=== PATIENT | female | born 1940 | race Caucasian/White ===

== ENCOUNTER → 2017-03-05 | Day surgery (SDC) | payer OTHER, MEDICAID ==
[~2017-03-05] MED LIST: 1-ME1LIQ PO; AMIT75TA6 PO; CHOL4POW4 PO; DIPH50TA PO; LACTATED RINGER'S 1000 ML INJ 1,000 ML ONE; MECL25CH PO; METO50TA PO; PRIL40CA PO; PROPOFOL 200 MG/20 ML AMP IV ONE; TRIF1TAB2 PO
--- NOTE | 2017-03-05 15:15 | GIPROC ---
[facility] [address] [facility], [address] COLONOSCOPY PROCEDURE REPORT EXAM DATE: 03/05/2017 PATIENT NAME: Sophy Lyon MR #: [id number] BIRTHDATE: 1940 ENDOSCOPIST: Dereck Bull MD ORDER #: [id number] [employer] PROFESSIONAL: Amy Pedraza RN STATUS: outpatient INDICATIONS: The patient is a 76 yr old female here for a colonoscopy due to unexplained diarrhea PROCEDURE PERFORMED: Colonoscopy with biopsy MEDICATIONS: None and Per Anesthesia. PREP QUALITY: good ESTIMATED BLOOD LOSS: None CONSENT: The patient understands the risks and benefits of the procedure and understands that these risks include, but are not limited to: sedation, allergic reaction, infection, perforation and/or bleeding. Alternative means of evaluation and treatment include, among others: physical exam, x-rays, and/or surgical intervention. The patient elects to proceed with this endoscopic procedure. medical equipment was checked for proper function. Hand hygiene and appropriate measures for infection prevention was taken. After the risks, benefits and alternatives of the procedure were thoroughly explained, Informed consent was verified, confirmed and timeout was successfully executed by the treatment team. A digital exam revealed no abnormalities of the rectum The EC-[id number] ([id number]) endoscope was introduced through the anus and advanced to the cecum, which was identified by both the appendix and ileocecal valve. The instrument was then slowly withdrawn as the colon was fully examined. COLON FINDINGS: Mild diverticulosis was noted in the sigmoid colon. The colon mucosa was otherwise normal. Multiple random biopsies of the area were performed. Retroflexed views revealed no abnormalities The scope was then completely withdrawn from the patient and the procedure terminated. PROCEDURE WITHDRAWAL TIME:6.9minutes ADVERSE EVENTS: There were no complications. IMPRESSIONS: 1. Mild diverticulosis was noted in the sigmoid colon 2. The colon mucosa was otherwise normal; multiple random biopsies of the area were performed 3. Retroflexed views revealed no abnormalities 4. Revealed no abnormalities of the rectum RECOMMENDATIONS: 1. Await biopsy results. Biopsy results will not be ready for 7-10 days. If you don't hear from us in two weeks, call our office for results. 2. High fiber diet 3. Yearly hemoccult 4. Follow-up: GI Clinic 4 week(s) RECALL: Colonoscopy Dereck Bull MD eSigned: Dereck Bull MD 03/05/2017 3:15 PM cc: Papo Hameed M.D and Rosalba Rashid
--- NOTE | 2017-03-05 15:19 | GIPROC ---
[facility] [address] [facility], [address] EGD PROCEDURE REPORT EXAM DATE: 03/05/2017 PATIENT NAME: Sophy Lyon MR #: [id number] BIRTHDATE: 1940 ATTENDING: Dereck Bull MD ORDER #: [id number] FINANCIAL LEGAL ASSISTANT: Amy Pedraza RN STATUS: outpatient INDICATIONS: The patient is a 76 yr old female here for an EGD due to dysphagia and unexplained diarrhea PROCEDURE PERFORMED: EGD w/ biopsy MEDICATIONS: None, Per Anesthesia, None, and Per Anesthesia. TOPICAL ANESTHETIC: CONSENT: The patient understands the risks and benefits of the procedure and understands that these risks include, but are not limited to: sedation, allergic reaction, infection, perforation and/or bleeding. Alternative means of evaluation and treatment include, among others: physical exam, x-rays, and/or surgical intervention. The patient elects to proceed with this endoscopic procedure. medical equipment was checked for proper function. Hand hygiene and appropriate measures for infection prevention was taken. After the risks, benefits and alternatives of the procedure were thoroughly explained, Informed consent was verified, confirmed and timeout was successfully executed by the treatment team. The patient was anesthetized with topical anesthesia and the EC-[id number] ([id number]) endoscope was introduced through the mouth and advanced to the second portion of the duodenum. Retroflexed views revealed no abnormalities The gastroscope was then slowly withdrawn and removed. STOMACH: There was mild gastritis in the gastric antrum. Multiple biopsies were performed. The endoscopy was otherwise normal. DUODENUM: The duodenal mucosa appeared normal. Cold forcep biopsies were taken in the second portion. ADVERSE EVENTS: There were no complications. IMPRESSIONS: 1. There was mild gastritis in the gastric antrum; multiple biopsies were performed 2. Normal endoscopy otherwise 3. Normal duodenal mucosa 4. Retroflexed views revealed no abnormalities RECOMMENDATIONS: 1. Await biopsy results. Biopsy results will not be ready for 7-10 days. If you don't hear from us in two weeks, call our office for biopsy results. 2. Follow-up: GI clinic 4 week(s) PATIENT CONDITION: stable DISPOSITION: Home REPEAT EXAM: Dereck Bull MD eSigned: Dereck Bull MD 03/05/2017 3:19 PM cc: Papo Jones [facility]
== END | disposition home or self-care (01) ==
LOC: ESDC 11:59
PROVIDERS: ATTEND Internal Medicine Gastroenterology
DX: R19.7 Diarrhea, unspecified (principal); K57.90 Diverticulosis of intestine, part unspecified, without perforation or abscess without bleeding; R13.10 Dysphagia, unspecified; K29.70 Gastritis, unspecified, without bleeding
CPT/HCPCS: 00740; 00810; 43239; 45380; 88305; 88312; J3010; J7120

== ENCOUNTER 2017-05-01 02:59 | Emergency (ER) | payer OTHER, MEDICAID ==
[~2017-05-01] VITALS: Ht 157.5 cm; Wt 77.3 kg
[~2017-05-01 02:59] MED LIST changes: -LACTATED RINGER'S 1000 ML INJ 1,000 ML ONE; -PROPOFOL 200 MG/20 ML AMP IV ONE
[2017-05-01 03:02] VITALS: BP 149/72; PULSE 67; RESP 16; TEMP 98.4; O2SAT 98
[2017-05-01 03:26] VITALS: BP 165/72; PULSE 69; RESP 16; O2SAT 100
[2017-05-01] MEDS ORDERED: TETANUS/DIPHTHERIA TOXOID ADULT 0.5 ML VIAL IM ONE (03:30)
[2017-05-01] MEDS ORDERED: GABA300C5 PO (03:37)
[2017-05-01] MEDS ORDERED: FURO20TA PO (03:37)
[2017-05-01] MEDS ORDERED: HYDR-3288 PO (03:37)
[2017-05-01] MEDS ORDERED: CHOL4POW3 PO (03:37)
[2017-05-01] MEDS ORDERED: ATOR1TAB18 PO (03:37)
[2017-05-01] MEDS ORDERED: TRIF2TAB PO (03:37)
[2017-05-01] MEDS ORDERED: METO50TA PO (03:37)
[2017-05-01] MEDS ORDERED: AMIT75TA2 PO (03:37)
[2017-05-01] MEDS ORDERED: PRIL20TA2 PO (03:37)
[2017-05-01] MEDS ORDERED: DICY10 PO (03:37)
[2017-05-01] MEDS ORDERED: MECL-62 PO (03:37)
[2017-05-01] MEDS ORDERED: CALC0.25 PO (03:37)
[2017-05-01] MEDS ORDERED: DIPHTH/TETANUS/ACEL PERTUSSIS (BOOSTER) 0.5 ML VIAL/PFS IM ONE (03:38)
--- NOTE | 2017-05-01 03:43 | PD ---
HPI Chief Complaint: Fall Time Seen by Provider: 03:20 Travel History International Travel<30 days: No Contact w/Intl Traveler<30days: No Traveled to known affect area: No History of Present Illness HPI The patient is a 76-year-old female who presents to the emergency department after mechanical fall. The patient states she got up to use the restroom and accidentally fell against a desk striking the left ear. The patient states she has a laceration of the left ear which bled initially but is currently stopped. She denies any significant headache or neck pain. She does complain of mild left shoulder pain where an abrasion is present. She cannot recall her last tetanus shot. She denies taking any anticoagulants. The patient denies any chest pain, shortness breath, nausea, vomiting, abdominal pain, or lower extremity pain. Symptoms are moderate, exacerbated after falling , and there are no current alleviating factors. The patient denies any loss of consciousness with the fall. The patient was able to ambulate after the fall. PFSH Past Medical History Hx Anticoagulant Therapy: No Anemia: Yes Arthritis: Yes Autoimmune Disease: No Bipolar Disorder: Yes Anxiety: Yes Depression: Yes Heart Rhythm Problems: Yes (TACHYCARDIA) Cancer: No Cardiac Catheterization: Yes Cardiomyopathy: Yes Cardiovascular Problems: Yes High Cholesterol: Yes Chemotherapy: No Chest Pain: Yes Congestive Heart Failure: No Cerebrovascular Accident: Yes Coronary Artery Disease: Yes Diabetes: Yes (boarderline) Patient Takes Glucophage: No Diminished Hearing: Yes (SUPPOSED TO WEAR HEARING AID) GERD: Yes Genitourinary: Yes (RENAL INSUFFICIENCY) Headaches: No Hiatal Hernia: Yes Hypertension: Yes Immune Disorder: No Kidney Stones: No Musculoskeletal: No Neurologic: Yes (HX OF VERTIGO) Psychiatric: No Reproductive: No Respiratory: No Migraines: No Renal Failure: No Seizures: No Thyroid Disease: No Ulcer: Yes (GASTRIC) Menopausal: Yes : 2 Para: 1 Miscarriage: 1 : 0 Past Surgical History Abdominal Surgery: Yes (APPENDECTOMY AND LAP CONNIE) Appendectomy: Yes Cardiac Surgery: No Cholecystectomy: Yes Ear Surgery: No Endocrine Surgery: No Eye Surgery: Yes (CATARACTS) Genitourinary Surgery: No Gynecologic Surgery: No Hysterectomy: No Neurologic Surgery: No Oral Surgery: No Thoracic Surgery: No Tonsillectomy: Yes Other Surgery: Yes (R BREAST BX) Social History Alcohol Use: No Tobacco Use: No Substance Use: No Allergies-Medications (Allergen,Severity, Reaction): Coded Allergies: Penicillin (Verified Allergy, Severe, Anaphylaxis, 05/01/17) Sulfa (Verified Allergy, Severe, Anaphylaxis, 05/01/17) Reported Meds & Prescriptions Reported Meds & Active Scripts Active Reported Bentyl (Dicyclomine HCl) 10 Mg Cap 10 Mg PO BID Gabapentin 300 Mg Cap 300 Mg PO BID Calcitriol 0.25 Mcg Cap 0.25 Mcg PO DAILY Furosemide 20 Mg Tab 10 Mg PO DAILY Atorvastatin (Atorvastatin Calcium) 80 Mg Tab 80 Mg PO HS Edwards (Hydrocodone-Acetaminophen) 7.5-325 mg Tab 1 Tab PO DAILY PRN Prilosec (Omeprazole Magnesium) 20 Mg Tab 40 Mg PO DAILY Metoprolol Tartrate 50 Mg Tab 50 Mg PO BID Meclizine (Meclizine HCl) 25 Mg Tab 25 Mg PO TID PRN Cholestyramine 4 Gm/Dose Powd 4 Gm PO DAILY 1 level scoopful of powder contains 4 grams of cholestyramine. Amitriptyline (Amitriptyline HCl) 75 Mg Tab 150 Mg PO HS Trifluoperazine (Trifluoperazine HCl) 2 Mg Tab 4 Mg PO HS Review of Systems Except as stated in HPI: all other systems reviewed are Neg General / Constitutional: No: Fever Eyes: No: Visual changes HENT: Positive: Other (laceration to left ear), No: Headaches Cardiovascular: No: Chest Pain or Discomfort Respiratory: No: Shortness of Breath Gastrointestinal: No: Nausea, Vomiting, Abdominal Pain Musculoskeletal: Positive: Pain (left shoulder pain) Neurologic: No: Change in Mentation Physical Exam Narrative GENERAL: Awake, alert, pleasant 76-year-old female who appears her stated age and is in no acute respiratory distress. SKIN: Focused skin assessment warm/dry. 1.5 cm laceration to the left ear over the auricle. HEAD: Laceration to left ear over the auricle measuring 1.5 cm. EYES: Pupils equal and round. Pupils are 3 mm bilateral and reactive. ENT: No nasal bleeding or discharge. Mucous membranes pink and moist. NECK: Trachea midline. No JVD. No tenderness of the cervical vertebrae. CARDIOVASCULAR: Regular rate and rhythm. No murmur appreciated. RESPIRATORY: No accessory muscle use. Clear to auscultation. Breath sounds equal bilaterally. GASTROINTESTINAL: Abdomen soft, non-tender, nondistended. No rebound tenderness. MUSCULOSKELETAL: Abrasion over the lateral left shoulder with a superficial abrasion. Patient is able to extend the left shoulder and abduct with mild discomfort. Positive distal pulses. Full range of motion of lower extremities and the right upper extremity. NEUROLOGICAL: Awake and alert. No obvious cranial nerve deficits. Motor grossly within normal limits. Normal speech. Alert and oriented 4. Follows commands without difficulty. PSYCHIATRIC: Appropriate mood and affect; insight and judgment normal. Data Data Last Documented VS Vital Signs Date Time Temp Pulse Resp B/P Pulse Ox O2 Delivery O2 Flow Rate FiO2 05/01/17 03:27 68 16 100 Room Air 05/01/17 03:26 165/72 05/01/17 03:[address] Brain W/O Iv Contrast(Rout) (05/01/17 ) Shoulder, Limited(2vws) (05/01/17 ) Tetanus/Diphtheria Tox Adult (Tetanus/Di (05/01/17 03:30) [id number]-[id number]-Ybatsf (Booster) Inj (Boostrix (05/01/17 03:38) Lidocaine 1% Inj (50 Ml) (Xylocaine 1% I (05/01/17 04:15) MDM Medical Decision Making Medical Screen Exam Complete: Yes Emergency Medical Condition: Yes Medical Record Reviewed: Yes Interpretation(s) Last Impressions Shoulder X-Ray 05/01/17 0000 Signed Impressions: Service Date/Time: April 03:40 - CONCLUSION: No acute abnormality is identified. Art Landrum MD Head CT 05/01/17 0000 Signed Impressions: Service Date/Time: April 04:00 - CONCLUSION: 1. No acute intracranial abnormality is identified. 2. Chronic changes include generalized atrophy and mild periventricular white matter low attenuation characteristic of chronic microvascular ischemia. Art Landrum MD Differential Diagnosis Differential diagnosis includes mechanical fall, laceration, closed head injury , intracranial hemorrhage, proximal humeral fracture, abrasion, contusion, hematoma. Narrative Course CT of the brain was obtained. Left shoulder x-ray was obtained. The patient's tetanus shot was updated. The patient's laceration was repaired by Hank Gray PA-C, please refer to the procedure note. CT of the brain reveals no acute intracranial abnormalities, no evidence of hemorrhage. X-ray left shoulder is unremarkable. The patient is advised to apply ice to the left shoulder, wound care to the left ear, sutures to be removed in 5-7 days. She is advised to follow-up with her primary physician and return if symptoms worsen or progress. Diagnosis Primary Impression: Closed head injury Qualified Code: S09.90XA - Closed head injury, initial encounter Additional Impressions: Laceration of ear Qualified Code: S01.312A - Laceration of ear, left, initial encounter Abrasion Patient Instructions: General Instructions Additional Instructions: Suture removal in 5-7 days. Wound care instructions. Follow-up with your primary physician. Please provide the patient a copy of her CT results and x- ray results at discharge. Return if symptoms worsen or progress. Disposition: 01 DISCHARGE HOME Condition: Stable Ruben Ford MD May 01, 2017 03:43
--- NOTE | 2017-05-01 03:57 | RADRPT ---
EXAM DATE/TIME: 05/01/2017 03:40 [facility] COMPARISON: No previous studies available for comparison. INDICATIONS : Left shoulder pain and redness after falling on left side. MEDICAL HISTORY : None. SURGICAL HISTORY : None. ENCOUNTER: Initial ACUITY: 1 day PAIN SCORE: 5/10 LOCATION: Left shoulder FINDINGS: 2 views of the left shoulder demonstrate no fracture or dislocation. The acromioclavicular joint is i ntact. No soft tissue abnormality is identified. The visualized portions of the left lung are clear and no displaced rib fracture is seen. CONCLUSION: No acute abnormality is identified. Art Landrum MD on May 01, 2017 at 3:55 Board Certified Radiologist. This report was verified electronically.
--- NOTE | 2017-05-01 04:14 | RADRPT ---
EXAM DATE/TIME: 05/01/2017 04:00 [facility] COMPARISON: CT BRAIN W/O CONTRAST, February 10, 2016, 17:32. INDICATIONS : Fell hitting left side of head. RADIATION DOSE: 29.51 CTDIvol (mGy) MEDICAL HISTORY : Cardiovascular disease. Cerebrovascular disease. Hypertension. SURGICAL HISTORY : Appendectomy. Cholecystectomy. ENCOUNTER: Initial ACUITY: 1 day PAIN SCALE: 5/10 LOCATION: Left cranial TECHNIQUE: Multiple contiguous axial images were obtained of the head. Using automated exposure control and adj ustment of the mA and/or kV according to patient size, radiation dose was kept as low as reasonably a chievable to obtain optimal diagnostic quality images. DICOM format image data is available electro nically for review and comparison. FINDINGS: CEREBRUM: There is mild cerebral atrophy. Ventricles are normal in size. There is periventricular white matter low attenuation. No evidence of midline shift, mass lesion, hemorrhage or acute infarction. No extr a-axial fluid collections are seen. POSTERIOR FOSSA: The cerebellum and brainstem demonstrate no acute finding. The 4th ventricle is midline. The cerebe llopontine angle is unremarkable. EXTRACRANIAL: Visualized sinuses are clear. SKULL: The calvaria is intact. No evidence of skull fracture. CONCLUSION: 1. No acute intracranial abnormality is identified. 2. Chronic changes include generalized atrophy and mild periventricular white matter low attenuation characteristic of chronic microvascular ischemia. Art Landrum MD on May 01, 2017 at 4:09 Board Certified Radiologist. This report was verified electronically.
[2017-05-01] MEDS ORDERED: LIDOCAINE HCL 1% 50 ML VIAL INFIL ONE (04:15)
--- NOTE | 2017-05-01 04:43 | PD ---
Physical Exam Narrative I was asked by Dr. Ford to repair patient's ear laceration. Please see his documentation for full H&P. Data Data Last Documented VS Vital Signs Date Time Temp Pulse Resp B/P Pulse Ox O2 Delivery O2 Flow Rate FiO2 05/01/17 03:27 68 16 100 Room Air 05/01/17 03:26 165/72 05/01/17 03:[address] Brain W/O Iv Contrast(Rout) (05/01/17 ) Shoulder, Limited(2vws) (05/01/17 ) Tetanus/Diphtheria Tox Adult (Tetanus/Di (05/01/17 03:30) [id number]-Hlv-Jnynac (Booster) Inj (Boostrix (05/01/17 03:38) Lidocaine 1% Inj (50 Ml) (Xylocaine 1% I (05/01/17 04:15) MDM Supervised Visit with HAILEE: No Procedures Procedure Narrative LACERATION REPAIR LOCATION: Left ear LENGTH: Approximately 3 cm in total length NUMBER OF STITCHES/JEREMIAH: 7 simple interrupted REPAIR: Verbal consent was obtained. The area of the laceration was cleaned and prepped. The laceration was infiltrated with lidocaine without epi. The wound was copiously irrigated and explored without evidence of foreign body, bony involvement, ligament injury, tendon injury, or neurovascular injury. The wound was closed using 5-0 Vicryl. This was a single layer repair. The patient was advised to keep the affected area as clean and dry as possible using soap and water. There were no complications. Patient tolerated the procedure well. Diagnosis Primary Impression: Closed head injury Qualified Code: S09.90XA - Closed head injury, initial encounter Additional Impressions: Abrasion Laceration of ear Qualified Code: S01.312A - Laceration of ear, left, initial encounter Patient Instructions: Care For Your Absorbable Stitches (ED), General Instructions Additional Instruction: Suture removal in 5-7 days. Wound care instructions. Follow-up with your primary physician. Please provide the patient a copy of her CT results and x- ray results at discharge. Return if symptoms worsen or progress. Disposition: 01 DISCHARGE HOME Condition: Stable Ken Gray May 01, 2017 04:43
== END 2017-05-01 05:49 | disposition home or self-care (01) ==
LOC: NEPE 02:59
DX: S09.90XA Unspecified injury of head, initial encounter (principal); S01.312A Laceration without foreign body of left ear, initial encounter; M25.512 Pain in left shoulder; D64.9 Anemia, unspecified; I42.9 Cardiomyopathy, unspecified; E11.9 Type 2 diabetes mellitus without complications; I10 Essential (primary) hypertension; W18.00XA Striking against unspecified object with subsequent fall, initial encounter; Z23 Encounter for immunization
CPT/HCPCS: 12013; 70450; 73030; 90471; 90714; 90715

== ENCOUNTER 2018-03-01 18:02 | Emergency (ER) | payer OTHER, MEDICAID ==
[~2018-03-01] VITALS: Ht 154.9 cm; Wt 79.0 kg
[~2018-03-01 18:02] MED LIST changes: -1-ME1LIQ PO; +AMIT75TA2 PO; -AMIT75TA6 PO; +ATOR80TA45 PO; +CALC0.25 PO; +CHOL4POW3 PO; -CHOL4POW4 PO; +DICY10 PO; -DIPH50TA PO; +FURO20TA PO; +GABA300C5 PO; +HYDR-3288 PO; +MECL-62 PO; -MECL25CH PO; +PRIL20TA2 PO; -PRIL40CA PO; -TRIF1TAB2 PO; +TRIF2TAB PO
[2018-03-01 18:11] VITALS: BP 162/95; PULSE 75; RESP 20; TEMP 99.1; O2SAT 98
[2018-03-01 19:56] VITALS: BP 219/91; PULSE 67; RESP 16; O2SAT 97
[2018-03-01] MEDS ORDERED: LOSA25TA PO (19:56)
[2018-03-01] MEDS ORDERED: TRIF2TAB PO (19:56)
[2018-03-01] MEDS ORDERED: HYDR-3801 PO (19:56)
[2018-03-01] MEDS ORDERED: AMIT50TA3 PO (19:56)
[2018-03-01] MEDS ORDERED: CLIN150C14 PO (20:22)
[2018-03-01] MEDS ORDERED: DOXY100C PO (20:22)
[2018-03-01] MEDS ORDERED: DOXYCYCLINE HYCLATE 100 MG CAP PO ONE (20:30)
[2018-03-01] MEDS ORDERED: CLINDAMYCIN 150 MG CAP PO ONE (20:30)
--- NOTE | 2018-03-01 20:42 | PD ---
HPI Chief Complaint: Bite or Sting Time Seen by Provider: 19:53 Travel History International Travel<30 days: No Contact w/Intl Traveler<30days: No Traveled to known affect area: No History of Present Illness HPI 77-year-old female that presents to the ED for evaluation of cat bite to her legs bilaterally. Per patient she lives with her daughter who has a cat and apparently this cat has attacked her in the past. Per patient is the second time this is not the first time that has happened. Cats up-to-date with vaccinations. Patient is up-to-date with her tetanus. Per patient she is concerned because she has multiple bite coello to both of her legs. She states that her pain is minimal in 1 out of 10 and she is medical concern about infection and swelling. She denies any other injuries. She has not seen anybody for this. Injuries occurred this morning. She has an allergy to sulfa and penicillin PFSH Past Medical History Hx Anticoagulant Therapy: No Anemia: Yes Arthritis: Yes Autoimmune Disease: No Bipolar Disorder: Yes Anxiety: Yes Depression: Yes Heart Rhythm Problems: Yes (TACHYCARDIA) Cancer: No Cardiac Catheterization: Yes Cardiomyopathy: Yes Cardiovascular Problems: Yes (CHF) High Cholesterol: Yes Chemotherapy: No Chest Pain: Yes Congestive Heart Failure: No Cerebrovascular Accident: Yes Coronary Artery Disease: Yes Diabetes: Yes Patient Takes Glucophage: No Diminished Hearing: Yes (SUPPOSED TO WEAR HEARING AID) GERD: Yes Genitourinary: Yes (RENAL INSUFFICIENCY) Headaches: No Hiatal Hernia: Yes Hypertension: Yes Immune Disorder: No Kidney Stones: No Musculoskeletal: No Neurologic: Yes (HX OF VERTIGO) Psychiatric: No Reproductive: No Respiratory: No Immunizations Current: No Migraines: No Renal Failure: No Seizures: No Thyroid Disease: No Ulcer: Yes (GASTRIC) ?: Not Menopausal: Yes : 2 Para: 1 Miscarriage: 1 : 0 Past Surgical History Abdominal Surgery: Yes (APPENDECTOMY AND LAP CONNIE) Appendectomy: Yes Cardiac Surgery: No Cholecystectomy: Yes Ear Surgery: No Endocrine Surgery: No Eye Surgery: Yes (CATARACTS) Genitourinary Surgery: No Gynecologic Surgery: No Hysterectomy: No Neurologic Surgery: No Oral Surgery: No Thoracic Surgery: No Tonsillectomy: Yes Other Surgery: Yes (R BREAST BX) Social History Alcohol Use: No Tobacco Use: No Substance Use: No Allergies-Medications (Allergen,Severity, Reaction): Coded Allergies: Sulfa (Sulfonamide Antibiotics) (Unverified Allergy, Severe, Anaphylaxis, 03/01/18) penicillin G (Unverified Allergy, Severe, Anaphylaxis, 03/01/18) Reported Meds & Prescriptions Reported Meds & Active Scripts Active Clindamycin (Clindamycin HCl) 150 Mg Cap 450 Mg PO TID 7 Days Doxycycline Hyclate 100 Mg Cap 100 Mg PO BID 7 Days Reported Hydralazine (Hydralazine HCl) 100 Mg Tab 100 Mg PO BID Take with meals Losartan (Losartan Potassium) 25 Mg Tab 12.5 Mg PO DAILY Trifluoperazine (Trifluoperazine HCl) 2 Mg Tab 2 Mg PO BID Amitriptyline (Amitriptyline HCl) 50 Mg Tab 50 Mg PO HS Bentyl (Dicyclomine HCl) 10 Mg Cap 10 Mg PO BID Gabapentin 300 Mg Cap 300 Mg PO BID Calcitriol 0.25 Mcg Cap 0.25 Mcg PO DAILY Atorvastatin (Atorvastatin Calcium) 80 Mg Tab 80 Mg PO HS Prilosec (Omeprazole Magnesium) 20 Mg Tab 40 Mg PO DAILY Metoprolol Tartrate 50 Mg Tab 50 Mg PO BID Cholestyramine 4 Gm/Dose Powd 4 Gm PO DAILY 1 level scoopful of powder contains 4 grams of cholestyramine. Review of Systems Except as stated in HPI: all other systems reviewed are Neg Physical Exam Narrative GENERAL: SKIN: Warm and dry. HEAD: Atraumatic. Normocephalic. EYES: Pupils equal and round. No scleral icterus. No injection or drainage. ENT: No nasal bleeding or discharge. Mucous membranes pink and moist. Tongue is midline. No uvula deviation. NECK: Trachea midline. No JVD. CARDIOVASCULAR: Regular rate and rhythm. RESPIRATORY: No accessory muscle use. Clear to auscultation. Breath sounds equal bilaterally. GASTROINTESTINAL: Abdomen soft, non-tender, nondistended. Hepatic and splenic margins not palpable. MUSCULOSKELETAL: Extremities without clubbing, cyanosis, or edema. No obvious deformities. Full range of motion of the upper and lower extremities bilaterally. 2+ pulses bilaterally. Patient has bite coello to her because bilaterally as well as to her lower legs. No tenderness to palpation. Some bruising noted especially in the calfs. Both of the bites appear to be in the canals bilaterally. Sensation intact bilaterally. She has a least 5 puncture wound-like lesions on each leg. NEUROLOGICAL: Awake and alert. No obvious cranial nerve deficits. Motor grossly within normal limits. Five out of 5 muscle strength in the arms and legs. Normal speech. PSYCHIATRIC: Appropriate mood and affect; insight and judgment normal. Data Data Last Documented VS Vital Signs Date Time Temp Pulse Resp B/P (MAP) Pulse Ox O2 Delivery O2 Flow Rate FiO2 03/01/18 19:56 67 16 219/91 (133) 97 Room Air 03/01/18 18:11 99.1 Orders Orders Clindamycin (Cleocin) (03/01/18 20:30) Doxycycline (Vibramycin) (03/01/18 20:30) Ed Discharge Order (03/01/18 20:23) [facility] Medical Decision Making Medical Screen Exam Complete: Yes Emergency Medical Condition: Yes Medical Record Reviewed: Yes Differential Diagnosis Cat bite versus infection versus animal bite Narrative Course 77-year-old female that presents to the ED for evaluation of cat bites. Patient was properly examined and was found to have signs and symptoms consistent appears to be cat bites. Patient will be started on doxycycline and clindamycin as per up to date this is recommended to cover for Pasteurella and anaerobic coverage. Patient agrees with plan. Patient was given medications in first dose here. Told to follow-up closely with PCP. Wound care was endorsed. See ED worsening symptoms. Diagnosis Primary Impression: Cat bite Qualified Codes: W55.01XA - Bitten by cat, initial encounter Patient Instructions: General Instructions Departure Forms: Tests/Procedures Additional Instructions: F/u with PCP. See ED if worsening symptoms. Take meds as prescribed. Med/Other Pt SpecificInfo: Prescription(s) given, Wound Care Scripts Clindamycin (Clindamycin) 150 Mg Cap 450 MG PO TID for Infection for 7 Days, CAP 0 Refills Prov: Marie Juan MD 03/01/18 Doxycycline Hyclate (Doxycycline Hyclate) 100 Mg Cap 100 MG PO BID for Infection for 7 Days, #14 CAP 0 Refills Prov: Marie Juan MD 03/01/18 Disposition: 01 DISCHARGE HOME Condition: Joseluis Harrell March 01, 2018 20:42
== END 2018-03-01 21:07 | disposition home or self-care (01) ==
LOC: NEPC 18:02
DX: S81.851A Open bite, right lower leg, initial encounter (principal); S81.852A Open bite, left lower leg, initial encounter; W55.01XA Bitten by cat, initial encounter
CPT/HCPCS: 99283